=== PATIENT | male | born 1975 | race Caucasian/White ===

== ENCOUNTER 2016-08-09 15:55 | Emergency (ER) | payer MEDICAID ==
[~2016-08-09] VITALS: Ht 172.7 cm; Wt 108.9 kg
[2016-08-09 17:00] VITALS: BP 155/89
== END 2016-08-09 19:06 | disposition home or self-care (01) ==
LOC: ER 16:03
DX: S29.011A Strain of muscle and tendon of front wall of thorax, initial encounter (principal); E11.9 Type 2 diabetes mellitus without complications; K21.9 Gastro-esophageal reflux disease without esophagitis; Y04.0XXA Assault by unarmed brawl or fight, initial encounter; Y93.89 Activity, other specified; Y99.8 Other external cause status; Y92.89 Other specified places as the place of occurrence of the external cause
CPT/HCPCS: 71101

== ENCOUNTER 2024-03-08 04:15 | Inpatient (IN) | payer MEDICAID ==
[~2024-03-08] VITALS: Ht 172.7 cm; Wt 84.3 kg
[2024-03-08] MEDS: SODIUM CHLORIDE 0.9% 1,000 ML IVB ONE (06:40)
[2024-03-08] MEDS: PANTOPRAZOLE 40 MG/10 ML VIAL INJ IV ONE (06:40)
[2024-03-08] MEDS: ONDANSETRON HCL 4 MG/2 ML VIAL IV ONE (06:41)
[2024-03-08] MEDS: MORPHINE SULFATE 4 MG/ML SYR/VIAL IV ONE (06:42)
[2024-03-08 06:54] LABS: Basophils # (auto) 0 10 ^3/uL (0-0.2); Basophils % (auto) 0.4 % (0.0-2.0); Eosinophils # (auto) 0 10 ^3/uL (0-0.8); Eosinophils % (auto) 0.4 % (0.0-7.0); Lymphocytes # (auto) 1.2 10 ^3/uL (0.4-5.4); Lymphocytes % (auto) 11.2 % (10.0-50.0); Mean Corpuscular Hemoglobin 29.3 pg (28.0-32.0); Mean Corpuscular Hgb Conc. 34.8 g/dL (32.0-36.0); Mean Corpuscular Volume 84.3 fL (80.0-100.0); Monocytes # (auto) 0.6 10 ^3/uL (0-1.3); Monocytes % (auto) 5.7 % (0.0-12.0); Neutrophils # (auto) 9.2 10 ^3/uL (1.6-8.6); Neutrophils % (auto) 82.3 % (37.0-80.0); Platelet Count (auto) 159 10^3/uL (140-450); Red Blood Cells 5.46 10^6/uL (4.5-5.90); Red Cell Distribution Width 12.8 % (11.8-14.3); White Blood Cell 11.1 10^3/uL (4.4-10.8)
[2024-03-08 07:05] LABS: Alanine Aminotransferase 20 U/L (7-40); Albumin 4.7 g/dL (3.2-4.8); Alkaline Phosphatase 99 U/L (46-116); Anion Gap 8 (5-15); Aspartate Aminotransferase 12 U/L (13-40); BUN/Creatinine Ratio 10.5 (10.0-20.0); Blood Urea Nitrogen 11 mg/dL (9-23); Calcium 9.7 mg/dL (8.7-10.4); Carbon Dioxide 30 mmol/L (20-30); Chloride 96 mmol/L (98-107); Lipase 35 U/L (12-53); Potassium 4.3 mmol/L (3.5-5.1); Sodium 134 mmol/L (136-145)
[2024-03-08 07:06] LABS: Bilirubin, Total 0.9 mg/dL (0.2-1.0); Total Protein 7.7 g/dL (5.7-8.2)
[2024-03-08 07:24] LABS: Glucose 425 mg/dL (74-106)
[2024-03-08] MEDS: InsuLIN REG 1unit/0.01ml Soln (100units/ml) IV ONE (08:40)
[2024-03-08 09:11] LABS: Urine Bacteria None Seen /hpf (None Seen)
[2024-03-08] MEDS ORDERED: GLIP10TA21 PO (09:11)
[2024-03-08] MEDS ORDERED: DEXTROSE (50%) 50ML SYRG IV PRN (09:15)
[2024-03-08 09:24] LABS: Urine Blood Negative /uL (Negative); Urine Clarity Clear (Clear); Urine Color Light-Yellow (Yellow); Urine Protein, UAD Negative (Negative); Urine Specific Gravity 1.042 (1.001-1.035); Urine Urobilinogen Normal (Negative); Urine WBC <1 /hpf (0 - 3); Urine pH 7.5 (5.0-9.0)
[2024-03-08 09:49] LABS: Triglycerides 85 mg/dL (< 150)
[2024-03-08 09:50] LABS: Cholesterol 176 mg/dL (< 200); LDL Cholesterol 121 mg/dL (< 100)
[2024-03-08 09:51] LABS: HDL Cholesterol 43 mg/dL (40-59)
[2024-03-08] MEDS: SODIUM CHLORIDE 0.9% 1,000 ML IV SCH (09:55)
[2024-03-08] MEDS: cefTRIAXone 1GM/50ML D5W 50 ML IV ONE (09:55)
[2024-03-08] MEDS ORDERED: HYDROcodone-ACET 5/325MG TAB PO PRN (10:00)
[2024-03-08] MEDS ORDERED: ONDANSETRON HCL 4 MG/2 ML VIAL IV PRN (10:00)
[2024-03-08] MEDS ORDERED: ACETAMINOPHEN 325 MG TAB PO PRN (10:00)
[2024-03-08 10:15] LABS: Amphetamine Screen, Urine Pos (NEGATIVE); Barbiturate Scree,Urine Neg (NEGATIVE); Benzodiazephine Screen, Urine Neg (NEGATIVE); Cannabinoid Screen, Urine Neg (NEGATIVE); Cocaine Screen, Urine Neg (NEGATIVE); Opiate Scree,Urine Neg (NEGATIVE); Phencyclidine Screen, Urine Neg (NEGATIVE)
[2024-03-08] MEDS: MORPHINE SULFATE INJ 2 MG/ml SYRG IV PRN (10:51)
[2024-03-08] MEDS ORDERED: ACCU-CHEK COMFORT CURVE STRIP VI SCH (11:30)
[2024-03-08] MEDS: InsuLIN REG 1unit/0.01ml Soln (100units/ml) SC SCH ×2 (11:53→11:58)
[2024-03-08] MEDS: ACCU-CHEK COMFORT CURVE STRIP VI SCH (11:58)
[2024-03-08] MEDS: metroNIDAZOLE 500MG/100ML 100 ML IV SCH (14:10)
[2024-03-08 18:35] VITALS: BP 118/64; PULSE 58; RESP 18; TEMP 97.8; O2SAT 97
[2024-03-08 19:30] VITALS: BP 118/64; PULSE 58; RESP 18; TEMP 97.5; O2SAT 97
[2024-03-08 20:00] VITALS: PULSE 63; RESP 17; O2SAT 96
[2024-03-08 21:00] VITALS: BP 117/66; PULSE 63; RESP 17; TEMP 97.8; O2SAT 96
[2024-03-08] MEDS: INSULIN LANTUS (GLARGINE) 1 /0.01ml (100units/ml) SC SCH (21:51)
[2024-03-08] MEDS ORDERED: PANT40TA2 PO (22:37)
[2024-03-08] MEDS ORDERED: INSREG3 IV (22:37)
[2024-03-09 05:00] VITALS: BP 109/63; PULSE 56; RESP 18; TEMP 97.6; O2SAT 98
[2024-03-09 06:29] LABS: Basophils # (auto) 0 10 ^3/uL (0-0.2); Basophils % (auto) 0.5 % (0.0-2.0); Eosinophils # (auto) 0.3 10 ^3/uL (0-0.8); Eosinophils % (auto) 3.2 % (0.0-7.0); Hematocrit 44.4 % (41.0-53.0); Hemoglobin 14.9 g/dL (13.5-17.5); Lymphocytes % (auto) 22.8 % (10.0-50.0); Mean Corpuscular Hemoglobin 28.5 pg (28.0-32.0); Mean Corpuscular Hgb Conc. 33.6 g/dL (32.0-36.0); Mean Corpuscular Volume 84.7 fL (80.0-100.0); Monocytes # (auto) 0.7 10 ^3/uL (0-1.3); Monocytes % (auto) 7.9 % (0.0-12.0); Neutrophils # (auto) 5.8 10 ^3/uL (1.6-8.6); Neutrophils % (auto) 65.6 % (37.0-80.0); Platelet Count (auto) 162 10^3/uL (140-450); Red Blood Cells 5.24 10^6/uL (4.5-5.90); Red Cell Distribution Width 12.7 % (11.8-14.3); White Blood Cell 8.8 10^3/uL (4.4-10.8)
[2024-03-09] MEDS: GLIPIZIDE 10 MG PO SCH (06:52)
[2024-03-09 08:00] VITALS: BP 106/58; PULSE 60; RESP 16; TEMP 98.8; O2SAT 98
[2024-03-09] MEDS: cefTRIAXone 1GM/50ML D5W 50 ML IV SCH (09:13)
[2024-03-09] MEDS: PANTOPRAZOLE 40 MG/10 ML VIAL INJ IV SCH (09:13)
[2024-03-09 12:00] VITALS: BP 122/75; PULSE 62; RESP 18; TEMP 98.5; O2SAT 96
[2024-03-09 16:00] VITALS: BP 120/66; PULSE 59; RESP 18; TEMP 98; O2SAT 98
[2024-03-09 20:00] VITALS: PULSE 88; RESP 18; O2SAT 95
[2024-03-09 21:00] VITALS: BP 111/66; PULSE 55; RESP 14; TEMP 98.6; O2SAT 95
[2024-03-09] MEDS: METOCLOPRAMIDE HCL 5MG/ml INJ 2ml VIAL IV SCH (21:44)
[2024-03-10 01:00] VITALS: BP 100/61; PULSE 55; RESP 18; TEMP 98.6; O2SAT 94
[2024-03-10 04:57] VITALS: BP 99/53; PULSE 51; RESP 16; TEMP 98; O2SAT 95
[2024-03-10 07:30] VITALS: PULSE 84; RESP 19; O2SAT 96
[2024-03-10 08:48] VITALS: BP 98/63; PULSE 51; RESP 20; TEMP 97.7; O2SAT 97
[2024-03-10 11:45] VITALS: BP 110/68; PULSE 58; RESP 18; TEMP 97.8; O2SAT 95
== END 2024-03-10 12:18 | disposition home or self-care (01) | DRG 247 ==
LOC: EDBD 04:15 → ER 04:15 → OVERFLOW 10:01 → WEST WING 17:58
PROVIDERS: ADMIT Registered Nurse; ATTEND Nurse Practitioner Acute Care
PROC: 0D9670Z Drainage of Stomach with Drainage Device, Via Natural or Artificial Opening (ICD-10-PCS; principal; 2024-03-08)
DX: K56.600 Partial intestinal obstruction, unspecified as to cause (principal); R65.10 Systemic inflammatory response syndrome (SIRS) of non-infectious origin without acute organ dysfunction; E11.65 Type 2 diabetes mellitus with hyperglycemia; K21.9 Gastro-esophageal reflux disease without esophagitis; F15.90 Other stimulant use, unspecified, uncomplicated; Z79.4 Long term (current) use of insulin
CPT/HCPCS: 36415; 71045; 74176; 80053; 80061; 80307; 81001; 82962; 83036; 83690; 85025; 87040; 87086; 96361; 96374; 96375; G0378; J1815; J2405; J2470; J3490